=== PATIENT | male | born 1965 | race Caucasian/White ===

== ENCOUNTER 2017-10-17 10:03 | Emergency (ER) | payer BC ==
[~2017-10-17] VITALS: Ht 180.3 cm; Wt 106.8 kg
[2017-10-17] MEDS ORDERED: VENL75CA47 PO (10:17)
[2017-10-17 11:37] LABS: BASO # 0.1 10^3/uL (0.0-0.2); BASO % 0.7 % (0.0-1.0); EOS # 0.3 10^3/uL (0.0-0.50); IMMATURE GRANULOCYTE % 0.4 % (0-0); LYMPH # 3.2 10^3/uL (1.5-4.5); LYMPH % 33.1 % (24.0-44.0); MEAN CORPUSCULAR HEMOGLOBIN 30.6 pg (27.0-33.0); MEAN CORPUSCULAR HGB CONC 33.9 g/dl (32.0-36.5); MEAN CORPUSCULAR VOLUME 90.2 fl (80.0-96.0); MONO # 0.8 10^3/uL (0.0-0.8); MONO % 7.9 % (0.0-5.0); NEUTROPHILS # 5.3 10^3/uL (1.8-7.7); NEUTROPHILS % 54.9 % (36.0-66.0); PLATELET COUNT, AUTOMATED 343 10^3/uL (150-450); RED CELL DISTRIBUTION WIDTH 12.4 % (11.5-14.5); WHITE BLOOD COUNT 9.6 10^3/uL (4.0-10.0)
[2017-10-17 12:13] LABS: OSMOLALITY SERUM 295 MOSM/KG (275-295)
[2017-10-17 12:22] LABS: ALBUMIN 4.5 GM/DL (3.2-5.2); ALBUMIN/GLOBULIN RATIO 1.25 (1.00-1.93); ALKALINE PHOSPHATASE 59 U/L (45-117); ALT/SGPT 57 U/L (12-78); ANION GAP 6 MEQ/L (8-16); AST/SGOT 42 U/L (7-37); BILIRUBIN,DIRECT 0.1 MG/DL (0.0-0.2); BILIRUBIN,TOTAL 0.8 MG/DL (0.2-1.0); BLOOD UREA NITROGEN 14 MG/DL (7-18); CALCIUM LEVEL 9.8 MG/DL (8.5-10.1); CARBON DIOXIDE LEVEL 30 MEQ/L (21-32); CHLORIDE LEVEL 102 MEQ/L (98-107); CREATININE FOR GFR 1.14 MG/DL (0.70-1.30); GLOMERULAR FILTRATION RATE > 60.0 (>56); GLUCOSE, FASTING 108 MG/DL (70-105); POTASSIUM SERUM 4.3 MEQ/L (3.5-5.1); SODIUM LEVEL 138 MEQ/L (136-145); TOTAL PROTEIN 8.1 GM/DL (6.4-8.2)
[2017-10-17 14:48] VITALS: BP 162/82
--- NOTE | 2017-10-17 18:54 | REP ---
CT study of the brain without contrast: History: Altered mental status. CT findings: Digital lateral cadd technician view is unremarkable. Bone window settings demonstrate an intact bony calvarium. No bony destructive lesion is seen. Visualized paranasal sinuses are clear. No intraorbital abnormality is seen. On soft tissue window settings, lateral, third, and fourth ventricles are normal in size and position. Bay-white differentiation pattern is normal above and below the tentorium. There is no evidence of intracranial hemorrhage. No extra-axial fluid collection is seen. No mass, infarction or midline shift is seen. Impression: Unremarkable noncontrast brain CT study. Signed by Waldo Braun MD 10/18/2017 08:05 A
--- NOTE | 2017-10-17 19:36 | ECGEPIP ---
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
== END 2017-10-17 14:48 | disposition home or self-care (01) ==
LOC: M ED 10:03
DX: F98.5 Adult onset fluency disorder (principal); F32.9 Major depressive disorder, single episode, unspecified; F17.200 Nicotine dependence, unspecified, uncomplicated; Z79.899 Other long term (current) drug therapy
CPT/HCPCS: 70450; 80048; 80076; 82140; 83930; 84443; 85025; 93005; 93041; 94760; 99285; G0480

== ENCOUNTER 2017-12-21 11:11 | Inpatient (IN) | payer BC ==
[2017-12-21 12:15] LABS: HEMATOCRIT 45.7 % (42.0-52.0); HEMOGLOBIN 15.7 g/dl (14.0-18.0); MEAN CORPUSCULAR HEMOGLOBIN 31.6 pg (27.0-33.0); MEAN CORPUSCULAR HGB CONC 34.4 g/dl (32.0-36.5); PLATELET COUNT, AUTOMATED 265 10^3/uL (150-450); RED BLOOD COUNT 4.97 10^6/uL (4.30-6.10); RED CELL DISTRIBUTION WIDTH 12.5 % (11.5-14.5); WHITE BLOOD COUNT 10.1 10^3/uL (4.0-10.0)
[2017-12-21] MEDS: OLANZapine ORAL DISINTEGRATING TAB 5MG PO (12:15)
[2017-12-21 12:34] LABS: ALBUMIN/GLOBULIN RATIO 1.25 (1.00-1.93); ALKALINE PHOSPHATASE 51 U/L (45-117); ALT/SGPT 55 U/L (12-78); ANION GAP 8 MEQ/L (8-16); AST/SGOT 33 U/L (7-37); BILIRUBIN,DIRECT 0.2 MG/DL (0.0-0.2); BILIRUBIN,TOTAL 0.8 MG/DL (0.2-1.0); BLOOD UREA NITROGEN 18 MG/DL (7-18); CALCIUM LEVEL 9.4 MG/DL (8.5-10.1); CARBON DIOXIDE LEVEL 28 MEQ/L (21-32); CHLORIDE LEVEL 103 MEQ/L (98-107); ETHYL ALCOHOL (ETHANOL) < 0.003 % (0.000-0.010); GLOMERULAR FILTRATION RATE > 60.0 (>56); GLUCOSE, FASTING 128 MG/DL (70-100); POTASSIUM SERUM 4.3 MEQ/L (3.5-5.1); SALICYLATE LEVEL < 1.7 MG/DL (5.0-30.0); SODIUM LEVEL 139 MEQ/L (136-145); TOTAL PROTEIN 7.2 GM/DL (6.4-8.2)
[2017-12-21 12:37] LABS: ACETAMINOPHEN LEVEL < 2.0 UG/ML (10.0-30.0)
[2017-12-21 12:44] LABS: AMPHETAMINES LEVEL URINE NEGATIVE (NEGATIVE); BARBITURATES URINE NEGATIVE (NEGATIVE); BENZODIAZEPINES URINE NEGATIVE (NEGATIVE); CANNABINOIDS URINE NEGATIVE (NEGATIVE); COCAINE METABOLITE URINE NEGATIVE (NEGATIVE); METHADONE URINE NEGATIVE (NEGATIVE); OPIATES URINE NEGATIVE (NEGATIVE); PHENCYCLIDINE URINE NEGATIVE (NEGATIVE)
[2017-12-21] MEDS ORDERED: ACETAMINOPHEN TAB 650MG DOSE (2X325MG) PO (14:15)
[2017-12-21] MEDS ORDERED: MOM 30ML SUSPENSION UDC PO (14:15)
[2017-12-21] MEDS ORDERED: MAALOX 30 ML SUSP *UDC PO (14:15)
[2017-12-21] MEDS ORDERED: LORazepam 2 MG/ML VIAL (J2060) IM (15:00)
[2017-12-21] MEDS ORDERED: HALOPERIDOL 5 MG/ML VIAL (J1630) IM (15:00)
[2017-12-21] MEDS ORDERED: LORazepam 1 MG TAB PO (15:00)
[2017-12-21] MEDS ORDERED: HALOPERIDOL 5 MG TAB PO (15:00)
[2017-12-21] MEDS ORDERED: QUEtiapine FUMARATE 100 MG TAB PO ×2 (21:00)
[2017-12-24 07:15] LABS: FREE THYROXINE INDEX 2.3 % (1.4-3.8); T UPTAKE 29 % (33-40); THYROXINE (T4) 8.1 UG/DL (4.5-12.0)
[2017-12-24] MEDS: FAMOTIDINE 20 MG TAB PO (09:00)
== END 2017-12-24 13:30 | disposition home or self-care (01) | DRG 754 ==
LOC: M PSY 12-22 21:10 → M ED 11:11 → M ED INP 14:13 → M PSY 16:10
DX: F32.9 Major depressive disorder, single episode, unspecified (principal); F41.9 Anxiety disorder, unspecified; G47.33 Obstructive sleep apnea (adult) (pediatric); K21.9 Gastro-esophageal reflux disease without esophagitis

== ENCOUNTER 2018-05-09 09:50 | Inpatient (IN) | payer BC ==
[2018-05-09] MEDS: BENZTROPINE MESYLATE 2MG/2ML VIAL IM (11:00)
[2018-05-09 12:10] LABS: HEMOGLOBIN 16.7 g/dl (13.5-17.5); MEAN CORPUSCULAR HEMOGLOBIN 31.3 pg (27.0-33.0); MEAN CORPUSCULAR HGB CONC 34.1 g/dl (32.0-36.5); MEAN CORPUSCULAR VOLUME 91.9 fl (80.0-96.0); PLATELET COUNT, AUTOMATED 239 10^3/uL (150-450); RED BLOOD COUNT 5.33 10^6/uL (4.30-6.10); RED CELL DISTRIBUTION WIDTH 12.6 % (11.5-14.5); WHITE BLOOD COUNT 8.6 10^3/uL (4.0-10.0)
[2018-05-09 12:36] LABS: AMPHETAMINES LEVEL URINE NEGATIVE (NEGATIVE); BARBITURATES URINE NEGATIVE (NEGATIVE); BENZODIAZEPINES URINE NEGATIVE (NEGATIVE); CANNABINOIDS URINE NEGATIVE (NEGATIVE); COCAINE METABOLITE URINE NEGATIVE (NEGATIVE); METHADONE URINE NEGATIVE (NEGATIVE); OPIATES URINE NEGATIVE (NEGATIVE); PHENCYCLIDINE URINE NEGATIVE (NEGATIVE)
[2018-05-09 12:47] LABS: ALBUMIN 4.3 GM/DL (3.2-5.2); ALBUMIN/GLOBULIN RATIO 1.39 (1.00-1.93); ALKALINE PHOSPHATASE 52 U/L (45-117); ALT/SGPT 57 U/L (12-78); ANION GAP 8 MEQ/L (8-16); AST/SGOT 24 U/L (7-37); BILIRUBIN,DIRECT 0.3 MG/DL (0.0-0.2); BILIRUBIN,TOTAL 1.3 MG/DL (0.2-1.0); BLOOD UREA NITROGEN 18 MG/DL (7-18); CALCIUM LEVEL 9.7 MG/DL (8.5-10.1); CARBON DIOXIDE LEVEL 27 MEQ/L (21-32); CHLORIDE LEVEL 107 MEQ/L (98-107); CREATININE FOR GFR 1.06 MG/DL (0.70-1.30); ETHYL ALCOHOL (ETHANOL) < 0.003 % (0.000-0.010); GLOMERULAR FILTRATION RATE > 60.0 (>56); GLUCOSE, FASTING 98 MG/DL (70-100); POTASSIUM SERUM 4.1 MEQ/L (3.5-5.1); SALICYLATE LEVEL < 1.7 MG/DL (5.0-30.0); SODIUM LEVEL 142 MEQ/L (136-145); TOTAL PROTEIN 7.4 GM/DL (6.4-8.2)
[2018-05-09 12:48] LABS: ACETAMINOPHEN LEVEL < 2.0 UG/ML (10.0-30.0)
[2018-05-09] MEDS ORDERED: LORazepam 0.5 MG TAB PO (13:45)
[2018-05-09] MEDS ORDERED: ACETAMINOPHEN TAB 650MG DOSE (2X325MG) PO (13:45)
[2018-05-09] MEDS ORDERED: MOM 30ML SUSPENSION UDC PO (13:45)
[2018-05-09] MEDS: MAALOX 30 ML SUSP *UDC PO (20:10)
[2018-05-09] MEDS: traZODone 50 MG TAB PO (21:35)
[2018-05-10] MEDS: QUEtiapine FUMARATE 25 MG TAB PO ×2 (18:53→19:02)
[2018-05-10] MEDS ORDERED: QUEtiapine FUMARATE 12.5 MG HALF-TAB PO (21:00)
[2018-05-11] MEDS: ESCITALOPRAM OXALATE 5MG TABLET (LEXAPRO) PO (12:11)
[2018-05-11] MEDS: MAALOX 30 ML SUSP *UDC PO (20:40)
[2018-05-11] MEDS: QUEtiapine FUMARATE 25 MG TAB PO (21:27)
[2018-05-12] MEDS: traZODone 50 MG TAB PO ×2 (00:52→23:34)
[2018-05-12] MEDS: diphenhydrAMINE 50 MG CAP PO (08:17)
[2018-05-12] MEDS: ESCITALOPRAM OXALATE 5MG TABLET (LEXAPRO) PO ×2 (08:17→15:37)
[2018-05-12] MEDS: QUEtiapine FUMARATE 25 MG TAB PO (20:58)
[2018-05-12] MEDS: MAALOX 30 ML SUSP *UDC PO (20:59)
[2018-05-13] MEDS: HALOPERIDOL 5 MG TAB PO (07:39)
[2018-05-13] MEDS ORDERED: ESCITALOPRAM OXALATE 5MG TABLET (LEXAPRO) PO (09:00)
[2018-05-13] MEDS: ESCITALOPRAM OXALATE 10 MG TAB (LEXAPRO) PO ×2 (09:00→15:02)
[2018-05-14] MEDS ORDERED: ESCITALOPRAM OXALATE 10 MG TAB (LEXAPRO) PO (09:00)
== END 2018-05-13 15:20 | disposition home or self-care (01) | DRG 753 ==
LOC: M ED 09:50 → M ED INP 13:33 → M PSY 14:48
DX: F31.9 Bipolar disorder, unspecified (principal); F41.9 Anxiety disorder, unspecified; K21.9 Gastro-esophageal reflux disease without esophagitis; G47.33 Obstructive sleep apnea (adult) (pediatric)

== ENCOUNTER 2018-06-04 09:50 | Inpatient (IN) | payer BC ==
[2018-06-04 10:46] LABS: HEMATOCRIT 53.7 % (42.0-52.0); MEAN CORPUSCULAR HEMOGLOBIN 31.3 pg (27.0-33.0); MEAN CORPUSCULAR HGB CONC 33.5 g/dl (32.0-36.5); MEAN CORPUSCULAR VOLUME 93.4 fl (80.0-96.0); PLATELET COUNT, AUTOMATED 264 10^3/uL (150-450); RED BLOOD COUNT 5.75 10^6/uL (4.30-6.10); RED CELL DISTRIBUTION WIDTH 12.6 % (11.5-14.5); WHITE BLOOD COUNT 9.8 10^3/uL (4.0-10.0)
[2018-06-04 11:17] LABS: ALBUMIN 4.3 GM/DL (3.2-5.2); ALBUMIN/GLOBULIN RATIO 1.19 (1.00-1.93); ALKALINE PHOSPHATASE 56 U/L (45-117); ALT/SGPT 50 U/L (12-78); AMPHETAMINES LEVEL URINE NEGATIVE (NEGATIVE); ANION GAP 9 MEQ/L (8-16); AST/SGOT 22 U/L (7-37); BARBITURATES URINE NEGATIVE (NEGATIVE); BENZODIAZEPINES URINE NEGATIVE (NEGATIVE); BILIRUBIN,DIRECT 0.3 MG/DL (0.0-0.2); BILIRUBIN,TOTAL 1.9 MG/DL (0.2-1.0); BLOOD UREA NITROGEN 20 MG/DL (7-18); CALCIUM LEVEL 9.5 MG/DL (8.5-10.1); CANNABINOIDS URINE NEGATIVE (NEGATIVE); CARBON DIOXIDE LEVEL 28 MEQ/L (21-32); CHLORIDE LEVEL 106 MEQ/L (98-107); COCAINE METABOLITE URINE NEGATIVE (NEGATIVE); CREATININE FOR GFR 1.25 MG/DL (0.70-1.30); ETHYL ALCOHOL (ETHANOL) 0.003 % (0.000-0.010); GLOMERULAR FILTRATION RATE > 60.0 (>56); GLUCOSE, FASTING 120 MG/DL (70-100); METHADONE URINE NEGATIVE (NEGATIVE); OPIATES URINE NEGATIVE (NEGATIVE); PHENCYCLIDINE URINE NEGATIVE (NEGATIVE); POTASSIUM SERUM 4.1 MEQ/L (3.5-5.1); SALICYLATE LEVEL < 1.7 MG/DL (5.0-30.0); SODIUM LEVEL 143 MEQ/L (136-145); TOTAL PROTEIN 7.9 GM/DL (6.4-8.2)
[2018-06-04 11:22] LABS: ACETAMINOPHEN LEVEL < 2.0 UG/ML (10.0-30.0)
[2018-06-04] MEDS ORDERED: ACETAMINOPHEN TAB 650MG DOSE (2X325MG) PO (15:15)
[2018-06-04] MEDS: hydrOXYzine 25 MG TAB PO (15:48)
[2018-06-04] MEDS: MAALOX 30 ML SUSP *UDC PO (20:52)
[2018-06-04] MEDS: traZODone 50 MG TAB PO ×2 (20:52→23:30)
[2018-06-04] MEDS: QUEtiapine FUMARATE 25 MG TAB PO (20:52)
[2018-06-04] MEDS: ESCITALOPRAM OXALATE 10 MG TAB (LEXAPRO) PO (20:52)
[2018-06-05] MEDS: hydrOXYzine 25 MG TAB PO ×3 (02:10→20:35)
[2018-06-05 07:09] LABS: HEMATOCRIT 48.1 % (42.0-52.0); HEMOGLOBIN 16.2 g/dl (13.5-17.5); MEAN CORPUSCULAR HEMOGLOBIN 31.1 pg (27.0-33.0); MEAN CORPUSCULAR HGB CONC 33.7 g/dl (32.0-36.5); MEAN CORPUSCULAR VOLUME 92.3 fl (80.0-96.0); PLATELET COUNT, AUTOMATED 229 10^3/uL (150-450); RED BLOOD COUNT 5.21 10^6/uL (4.30-6.10); RED CELL DISTRIBUTION WIDTH 12.6 % (11.5-14.5); WHITE BLOOD COUNT 7.6 10^3/uL (4.0-10.0)
[2018-06-05 07:25] LABS: ALBUMIN 3.9 GM/DL (3.2-5.2); ALBUMIN/GLOBULIN RATIO 1.15 (1.00-1.93); ALKALINE PHOSPHATASE 52 U/L (45-117); ALT/SGPT 45 U/L (12-78); ANION GAP 7 MEQ/L (8-16); AST/SGOT 20 U/L (7-37); BILIRUBIN,TOTAL 1.4 MG/DL (0.2-1.0); BLOOD UREA NITROGEN 20 MG/DL (7-18); CALCIUM LEVEL 9.1 MG/DL (8.5-10.1); CARBON DIOXIDE LEVEL 28 MEQ/L (21-32); CHLORIDE LEVEL 108 MEQ/L (98-107); GLOMERULAR FILTRATION RATE > 60.0 (>56); GLUCOSE, FASTING 106 MG/DL (70-100); POTASSIUM SERUM 4.1 MEQ/L (3.5-5.1); SODIUM LEVEL 143 MEQ/L (136-145); TOTAL PROTEIN 7.3 GM/DL (6.4-8.2)
[2018-06-05] MEDS ORDERED: OLANZapine INTRAMUSCULAR 10 MG VIAL (S0166) IM (11:04)
[2018-06-05] MEDS ORDERED: diphenhydrAMINE INJ 50MG/ML VIAL (J1200) IM (11:04)
[2018-06-05] MEDS ORDERED: LORazepam 2 MG/ML VIAL (J2060) IM (11:04)
[2018-06-05] MEDS: LITHIUM CARBONATE 300 MG **CR** TAB PO ×2 (12:04→20:34)
[2018-06-05 12:39] LABS: FREE THYROXINE INDEX 3.4 % (1.4-3.8); T UPTAKE 37 % (33-40); THYROXINE (T4) 9.1 UG/DL (4.5-12.0)
[2018-06-05] MEDS: MAALOX 30 ML SUSP *UDC PO (16:26)
[2018-06-05] MEDS: traZODone 50 MG TAB PO (20:34)
[2018-06-05] MEDS: ESCITALOPRAM OXALATE 10 MG TAB (LEXAPRO) PO (20:34)
[2018-06-05] MEDS: MOM 30ML SUSPENSION UDC PO (22:38)
[2018-06-06] MEDS: LITHIUM CARBONATE 300 MG **CR** TAB PO (08:28)
[2018-06-06] MEDS ORDERED: ESCITALOPRAM OXALATE 10 MG TAB (LEXAPRO) PO (09:00)
[2018-06-06] MEDS: MAALOX 30 ML SUSP *UDC PO (13:05)
[2018-06-06] MEDS: traZODone 50 MG TAB PO (20:51)
[2018-06-06] MEDS: ESCITALOPRAM OXALATE 10 MG TAB (LEXAPRO) PO (20:51)
[2018-06-06] MEDS: LITHIUM CARBONATE 450 MG **CR** TAB PO (20:52)
[2018-06-06] MEDS: hydrOXYzine 25 MG TAB PO (20:52)
[2018-06-06] MEDS: MOM 30ML SUSPENSION UDC PO (20:53)
[2018-06-07] MEDS: LITHIUM CARBONATE 450 MG **CR** TAB PO ×2 (09:31→21:53)
[2018-06-07] MEDS: MAALOX 30 ML SUSP *UDC PO ×3 (10:29→21:52)
[2018-06-07] MEDS ORDERED: PILL CRUSHER/CUTTER 1 EACH XX (11:00)
[2018-06-07 12:12] LABS: ANION GAP 6 MEQ/L (8-16); BLOOD UREA NITROGEN 12 MG/DL (7-18); CALCIUM LEVEL 9.5 MG/DL (8.5-10.1); CARBON DIOXIDE LEVEL 29 MEQ/L (21-32); CHLORIDE LEVEL 108 MEQ/L (98-107); CREATININE FOR GFR 1.06 MG/DL (0.70-1.30); GLOMERULAR FILTRATION RATE > 60.0 (>56); GLUCOSE, FASTING 100 MG/DL (70-100); POTASSIUM SERUM 4.4 MEQ/L (3.5-5.1); SODIUM LEVEL 143 MEQ/L (136-145)
[2018-06-07] MEDS: METHYLPHENIDATE 5 MG TAB PO (13:15)
[2018-06-07] MEDS: hydrOXYzine 25 MG TAB PO (21:54)
[2018-06-07] MEDS: ESCITALOPRAM OXALATE 10 MG TAB (LEXAPRO) PO (21:54)
[2018-06-07] MEDS: traZODone 50 MG TAB PO (21:54)
[2018-06-08 07:21] LABS: LITHIUM LEVEL 0.57 MEQ/L (0.60-1.20)
[2018-06-08] MEDS: LITHIUM CARBONATE 450 MG **CR** TAB PO ×2 (08:40→21:55)
[2018-06-08] MEDS: METHYLPHENIDATE 5 MG TAB PO ×2 (08:40→14:10)
[2018-06-08] MEDS: MAALOX 30 ML SUSP *UDC PO ×2 (14:59→21:57)
[2018-06-08] MEDS: ESCITALOPRAM OXALATE 10 MG TAB (LEXAPRO) PO (21:55)
[2018-06-08] MEDS: hydrOXYzine 25 MG TAB PO (21:55)
[2018-06-08] MEDS: traZODone 50 MG TAB PO (21:55)
[2018-06-09] MEDS: LITHIUM CARBONATE 450 MG **CR** TAB PO ×2 (08:19→20:51)
[2018-06-09] MEDS: METHYLPHENIDATE 5 MG TAB PO ×2 (08:19→13:38)
[2018-06-09] MEDS: MAALOX 30 ML SUSP *UDC PO (18:59)
[2018-06-09] MEDS: hydrOXYzine 25 MG TAB PO (20:51)
[2018-06-09] MEDS: ESCITALOPRAM OXALATE 10 MG TAB (LEXAPRO) PO (20:51)
[2018-06-09] MEDS: traZODone 50 MG TAB PO (20:51)
[2018-06-10] MEDS: METHYLPHENIDATE 5 MG TAB PO ×3 (07:54→13:21)
[2018-06-10] MEDS: LITHIUM CARBONATE 450 MG **CR** TAB PO ×2 (08:00→21:46)
[2018-06-10] MEDS: ESCITALOPRAM OXALATE 10 MG TAB (LEXAPRO) PO (21:45)
[2018-06-10] MEDS: traZODone 50 MG TAB PO (21:45)
[2018-06-10] MEDS: hydrOXYzine 25 MG TAB PO (21:46)
[2018-06-10] MEDS: MAALOX 30 ML SUSP *UDC PO (21:48)
[2018-06-11] MEDS: METHYLPHENIDATE 5 MG TAB PO ×2 (08:22→13:14)
[2018-06-11] MEDS: LITHIUM CARBONATE 300 MG **CR** TAB PO (08:22)
[2018-06-11] MEDS: hydrOXYzine 25 MG TAB PO ×2 (08:22→20:49)
[2018-06-11] MEDS: MAALOX 30 ML SUSP *UDC PO (16:35)
[2018-06-11] MEDS: LITHIUM CARBONATE 450 MG **CR** TAB PO (20:49)
[2018-06-11] MEDS: traZODone 50 MG TAB PO (20:49)
[2018-06-11] MEDS: ESCITALOPRAM OXALATE 10 MG TAB (LEXAPRO) PO (20:49)
[2018-06-12] MEDS: METHYLPHENIDATE 5 MG TAB PO ×2 (08:16→13:23)
[2018-06-12] MEDS: LITHIUM CARBONATE 300 MG **CR** TAB PO (08:16)
[2018-06-12] MEDS: buPROPion **XL** TABLET 150MG (WELLBUTRIN XL) PO (11:19)
[2018-06-12] MEDS: ESCITALOPRAM OXALATE 10 MG TAB (LEXAPRO) PO (22:09)
[2018-06-12] MEDS: hydrOXYzine 25 MG TAB PO (22:09)
[2018-06-12] MEDS: LITHIUM CARBONATE 450 MG **CR** TAB PO (22:09)
[2018-06-12] MEDS: traZODone 50 MG TAB PO (22:09)
[2018-06-13 08:34] LABS: LITHIUM LEVEL 0.86 MEQ/L (0.60-1.20)
[2018-06-13] MEDS: LITHIUM CARBONATE 300 MG **CR** TAB PO (09:14)
[2018-06-13] MEDS: METHYLPHENIDATE 5 MG TAB PO ×2 (09:14→14:04)
[2018-06-13] MEDS: buPROPion **XL** TABLET 150MG (WELLBUTRIN XL) PO (09:14)
[2018-06-13] MEDS: MAALOX 30 ML SUSP *UDC PO (20:06)
[2018-06-13] MEDS: ESCITALOPRAM OXALATE 10 MG TAB (LEXAPRO) PO (21:35)
[2018-06-13] MEDS: LITHIUM CARBONATE 450 MG **CR** TAB PO (21:35)
[2018-06-13] MEDS: traZODone 50 MG TAB PO (21:35)
[2018-06-13] MEDS: hydrOXYzine 25 MG TAB PO (21:35)
[2018-06-14] MEDS: METHYLPHENIDATE 5 MG TAB PO ×2 (08:36→13:57)
[2018-06-14] MEDS: LITHIUM CARBONATE 300 MG **CR** TAB PO (08:36)
[2018-06-14] MEDS: buPROPion **XL** TABLET 150MG (WELLBUTRIN XL) PO (08:36)
[2018-06-14] MEDS: hydrOXYzine 25 MG TAB PO (21:32)
[2018-06-14] MEDS: traZODone 50 MG TAB PO (21:32)
[2018-06-14] MEDS: ESCITALOPRAM OXALATE 10 MG TAB (LEXAPRO) PO (21:32)
[2018-06-14] MEDS: LITHIUM CARBONATE 450 MG **CR** TAB PO (21:32)
[2018-06-15] MEDS: METHYLPHENIDATE 5 MG TAB PO ×2 (08:55→13:07)
[2018-06-15] MEDS: LITHIUM CARBONATE 300 MG **CR** TAB PO (08:55)
[2018-06-15] MEDS: buPROPion **XL** TABLET 150MG (WELLBUTRIN XL) PO (08:55)
[2018-06-15] MEDS: ESCITALOPRAM OXALATE 10 MG TAB (LEXAPRO) PO (20:54)
[2018-06-15] MEDS: LITHIUM CARBONATE 450 MG **CR** TAB PO (20:55)
[2018-06-16] MEDS: METHYLPHENIDATE 5 MG TAB PO ×2 (08:56→14:05)
[2018-06-16] MEDS: buPROPion **XL** TABLET 150MG (WELLBUTRIN XL) PO (08:56)
[2018-06-16] MEDS: LITHIUM CARBONATE 300 MG **CR** TAB PO (08:56)
[2018-06-16] MEDS: traZODone 25MG PER 1/2 TABLET PO (22:01)
[2018-06-16] MEDS: LITHIUM CARBONATE 450 MG **CR** TAB PO (22:02)
[2018-06-16] MEDS: ESCITALOPRAM OXALATE 10 MG TAB (LEXAPRO) PO (22:04)
[2018-06-17] MEDS: METHYLPHENIDATE 5 MG TAB PO ×2 (09:24→14:25)
[2018-06-17] MEDS: LITHIUM CARBONATE 300 MG **CR** TAB PO (09:24)
[2018-06-17] MEDS: buPROPion **XL** TABLET 150MG (WELLBUTRIN XL) PO (09:24)
[2018-06-17] MEDS: hydrOXYzine 25 MG TAB PO (20:26)
[2018-06-17] MEDS: traZODone 50 MG TAB PO (20:27)
[2018-06-17] MEDS: LITHIUM CARBONATE 450 MG **CR** TAB PO (20:27)
[2018-06-17] MEDS: ESCITALOPRAM OXALATE 10 MG TAB (LEXAPRO) PO (20:27)
[2018-06-18] MEDS: LITHIUM CARBONATE 300 MG **CR** TAB PO (08:45)
[2018-06-18] MEDS: METHYLPHENIDATE 5 MG TAB PO ×2 (08:45→13:36)
[2018-06-18] MEDS: buPROPion **XL** TABLET 150MG (WELLBUTRIN XL) PO (08:45)
[2018-06-18] MEDS: hydrOXYzine 25 MG TAB PO (21:54)
[2018-06-18] MEDS: traZODone 50 MG TAB PO (21:54)
[2018-06-18] MEDS: LITHIUM CARBONATE 450 MG **CR** TAB PO (21:54)
[2018-06-18] MEDS: ESCITALOPRAM OXALATE 10 MG TAB (LEXAPRO) PO (21:54)
[2018-06-19] MEDS: METHYLPHENIDATE 5 MG TAB PO ×2 (08:38→14:32)
[2018-06-19] MEDS: buPROPion **XL** TABLET 150MG (WELLBUTRIN XL) PO (08:38)
[2018-06-19] MEDS: LITHIUM CARBONATE 300 MG **CR** TAB PO ×2 (08:38→20:53)
[2018-06-19] MEDS: traZODone 50 MG TAB PO (20:53)
[2018-06-19] MEDS: ESCITALOPRAM OXALATE 10 MG TAB (LEXAPRO) PO (20:53)
[2018-06-19] MEDS: hydrOXYzine 25 MG TAB PO (20:53)
[2018-06-20] MEDS ORDERED: buPROPion **XL** TABLET 150MG (WELLBUTRIN XL) PO (09:00)
[2018-06-20] MEDS: buPROPion **XL** TABLET 150MG (WELLBUTRIN XL) PO (09:12)
[2018-06-20] MEDS: METHYLPHENIDATE 5 MG TAB PO ×2 (09:12→13:36)
[2018-06-20] MEDS: LITHIUM CARBONATE 300 MG **CR** TAB PO (09:13)
[2018-06-20] MEDS: hydrOXYzine 25 MG TAB PO (20:45)
[2018-06-20] MEDS: LITHIUM CARBONATE 450 MG **CR** TAB PO (20:46)
[2018-06-20] MEDS: traZODone 50 MG TAB PO (20:46)
[2018-06-20] MEDS: ESCITALOPRAM OXALATE 10 MG TAB (LEXAPRO) PO (20:46)
[2018-06-20] MEDS: MAALOX 30 ML SUSP *UDC PO (21:14)
[2018-06-21] MEDS: LITHIUM CARBONATE 300 MG **CR** TAB PO (08:51)
[2018-06-21] MEDS: METHYLPHENIDATE 5 MG TAB PO ×2 (08:51→13:32)
[2018-06-21] MEDS: buPROPion **XL** TABLET 150MG (WELLBUTRIN XL) PO (08:51)
[2018-06-21] MEDS: hydrOXYzine 25 MG TAB PO (20:36)
[2018-06-21] MEDS: LITHIUM CARBONATE 450 MG **CR** TAB PO (20:36)
[2018-06-21] MEDS: traZODone 50 MG TAB PO (20:36)
[2018-06-21] MEDS: ESCITALOPRAM OXALATE 10 MG TAB (LEXAPRO) PO (20:37)
[2018-06-22] MEDS: METHYLPHENIDATE 5 MG TAB PO ×2 (09:05→13:24)
[2018-06-22] MEDS: LITHIUM CARBONATE 300 MG **CR** TAB PO (09:05)
[2018-06-22] MEDS: buPROPion **XL** TABLET 150MG (WELLBUTRIN XL) PO (09:05)
[2018-06-22] MEDS: hydrOXYzine 25 MG TAB PO (21:19)
[2018-06-22] MEDS: ESCITALOPRAM OXALATE 10 MG TAB (LEXAPRO) PO (21:19)
[2018-06-22] MEDS: traZODone 50 MG TAB PO (21:19)
[2018-06-22] MEDS: LITHIUM CARBONATE 450 MG **CR** TAB PO (21:20)
[2018-06-23] MEDS: buPROPion **XL** TABLET 150MG (WELLBUTRIN XL) PO (09:17)
[2018-06-23] MEDS: LITHIUM CARBONATE 300 MG **CR** TAB PO (09:17)
[2018-06-23] MEDS: METHYLPHENIDATE 5 MG TAB PO ×2 (09:17→14:32)
[2018-06-23] MEDS: LITHIUM CARBONATE 450 MG **CR** TAB PO (21:05)
[2018-06-23] MEDS: ESCITALOPRAM OXALATE 10 MG TAB (LEXAPRO) PO (21:06)
[2018-06-24] MEDS: buPROPion **XL** TABLET 150MG (WELLBUTRIN XL) PO (08:02)
[2018-06-24] MEDS: LITHIUM CARBONATE 300 MG **CR** TAB PO ×2 (08:02→21:06)
[2018-06-24] MEDS: METHYLPHENIDATE 5 MG TAB PO ×2 (08:02→13:01)
[2018-06-24] MEDS: ESCITALOPRAM OXALATE 10 MG TAB (LEXAPRO) PO (21:06)
[2018-06-25] MEDS: hydrOXYzine 25 MG TAB PO (01:55)
[2018-06-25] MEDS: buPROPion **XL** TABLET 150MG (WELLBUTRIN XL) PO (08:30)
[2018-06-25] MEDS: METHYLPHENIDATE 5 MG TAB PO ×2 (08:30→12:29)
[2018-06-25] MEDS: LITHIUM CARBONATE 300 MG **CR** TAB PO (08:30)
== END 2018-06-25 12:40 | DRG 753 ==
LOC: M PSY 06-08 12:59 → M ED 09:50 → M PSY 14:10
DX: F31.9 Bipolar disorder, unspecified (principal); R45.851 Suicidal ideations; Z79.899 Other long term (current) drug therapy; G47.33 Obstructive sleep apnea (adult) (pediatric); K21.9 Gastro-esophageal reflux disease without esophagitis

== ENCOUNTER → 2018-11-13 | Outpatient (CLI) | payer BC ==
[~2018-11-13] MED LIST: ARIP1TAB PO; ARIP5TA PO; FAMO20TA PO; LEXA1TAB2; LEXA1TAB2 PO; LEXA5TAB13 PO; LORA0.5T11 PO; OLAN5ZYD PO; QUET1TAB7 PO; QUET1TAB8 PO; RISP1TAB42 PO; SERO1TAB3; SERO1TAB3 PO; TRAZO50TA PO; VENL75CA47 PO
--- NOTE | 2018-11-14 02:18 | REP ---
Clinical: Testicular mass. Technique: Real time [place] scale and color Doppler evaluation using linear high frequency transducer. Findings: The bilateral testicles are normal in contour, size, echogenicity, and vascularity without evidence for intratesticular mass lesion, infectious/inflammatory process, or torsion. Small/moderate bilateral hydroceles are identified and essentially nonspecific. Right epididymal head cyst measures 2.8 mm maximal diameter while multiple left epididymal head cysts are identified measuring up to 5.8 and 5.7 mm maximal diameter. No varicoceles noted. Right testicle measures 4.2 x 2.6 x 3.7 cm. Left testicle measures 4.5 x 2.7 x 3.0 cm. Impression: 1. Few bilateral epididymal head cysts (left greater than right). 2. Small to moderate bilateral hydroceles are nonspecific. 3. Normal appearance the bilateral testicles. No obvious mass lesion. Electronically Signed by Clifton Castro MD 11/14/2018 02:10 A
== END ==
LOC: M RAD 13:54
PROVIDERS: ATTEND Family Medicine
DX: N50.3 Cyst of epididymis (principal); N43.3 Hydrocele, unspecified

== ENCOUNTER 2022-08-13 14:41 | Emergency (ER) | payer BC, OTHER ==
[~2022-08-13] VITALS: Ht 180.3 cm; Wt 112.7 kg
[~2022-08-13 14:41] MED LIST changes: +ARIP10TA32 PO; -ARIP1TAB PO; +ARIP1TAB6 PO; -ARIP5TA PO; -LORA0.5T11 PO; +LORA0.5T5 PO; +QUET100T2 PO; +QUET1TAB17 PO; -QUET1TAB7 PO; -QUET1TAB8 PO; +TRAZ1TAB10 PO; -TRAZO50TA PO
[2022-08-13] MEDS ORDERED: BUPR300T92 PO (14:53)
[2022-08-13] MEDS ORDERED: METF500T13 PO (14:53)
[2022-08-13 18:43] LABS: BASO # 0.1 10^3/uL (0.0-0.2); BASO % 0.8 % (0.0-1.0); EOS # 0.4 10^3/uL (0.0-0.5); EOS % 3.7 % (0.0-3.0); HEMATOCRIT 52.3 % (42.0-52.0); HEMOGLOBIN 17.5 g/dl (13.5-17.5); LYMPH # 2.6 10^3/uL (1.5-5.0); LYMPH % 24.6 % (24.0-44.0); MEAN CORPUSCULAR HEMOGLOBIN 31.1 pg (27.0-33.0); MEAN CORPUSCULAR HGB CONC 33.5 g/dl (32.0-36.5); MEAN CORPUSCULAR VOLUME 92.9 fl (80.0-96.0); MONO # 0.9 10^3/uL (0.0-0.8); NEUTROPHILS # 6.4 10^3/uL (1.5-8.5); NEUTROPHILS % 61.4 % (36.0-66.0); PLATELET COUNT, AUTOMATED 229 10^3/uL (150-450); RED BLOOD COUNT 5.63 10^6/uL (4.30-6.10); WHITE BLOOD COUNT 10.4 10^3/uL (4.0-10.0)
[2022-08-13 18:58] LABS: INR 0.96
[2022-08-13 18:59] LABS: PARTIAL THROMBOPLASTIN TIME 34.3 SECONDS (24.8-34.2)
[2022-08-13] MEDS ORDERED: ISOVUE-370 76% 100ML VIAL As Ordered ONE (18:59)
[2022-08-13 19:18] LABS: FREE T4 0.91 NG/DL (0.76-1.46); MAGNESIUM LEVEL 2.2 MG/DL (1.8-2.4); THYROID STIMULATING HORMONE 4.21 uIU/ML (0.358-3.740)
[2022-08-13] MEDS ORDERED: LISI10TA22 PO (20:33)
[2022-08-13 20:45] VITALS: BP 167/107
[2022-08-13 20:48] VITALS: BP 167/107
== END 2022-08-13 20:55 | disposition home or self-care (01) ==
LOC: M ED 14:41
DX: R51.9 Headache, unspecified (principal); I10 Essential (primary) hypertension; I25.2 Old myocardial infarction; Z79.811 Long term (current) use of aromatase inhibitors; Z79.899 Other long term (current) drug therapy
CPT/HCPCS: 36415; 70450; 70496; 70498; 80047; 83735; 84439; 84443; 85025; 85610; 85730; 93005; 99284; Q9967

== ENCOUNTER 2023-10-31 06:50 | Day surgery (SDC) | payer OTHER ==
[~2023-10-31] VITALS: Ht 180.3 cm; Wt 108.5 kg
[~2023-10-31 06:50] MED LIST changes: +BUPR300T92 PO; +LISI10TA22 PO; +METF500T13 PO; +NS 1,000 ML IV ONE
[2023-10-31] MEDS ORDERED: propofoL 200 MG/20 ML VIAL As Ordered ONE ×2 (07:50→08:01)
[2023-10-31 08:12] VITALS: TEMP 97.9
[2023-10-31 08:35] VITALS: BP 104/61; O2SAT 94
== END 2023-10-31 08:40 | disposition home or self-care (01) ==
LOC: M OPP 06:50
PROVIDERS: ATTEND Surgery
DX: K64.0 First degree hemorrhoids (principal); R19.5 Other fecal abnormalities; G47.30 Sleep apnea, unspecified; Z99.89 Dependence on other enabling machines and devices; E11.9 Type 2 diabetes mellitus without complications; Z79.84 Long term (current) use of oral hypoglycemic drugs; Z79.899 Other long term (current) drug therapy

== ENCOUNTER 2024-09-19 06:01 | Day surgery (SDC) | payer OTHER ==
[~2024-09-19] VITALS: Ht 170.2 cm; Wt 105.6 kg
[~2024-09-19 06:01] MED LIST changes: -ARIP10TA32 PO; +ARIP10TA63 PO; +BUPR-597 PO; -BUPR300T92 PO; +FAMO10TA50 PO; -NS 1,000 ML IV ONE
[2024-09-19] MEDS ORDERED: ACETAMINOPHEN 1000MG/100ML IV BAG As Ordered ONE (06:48)
[2024-09-19] MEDS ORDERED: LIDOCAINE 2% 100MG/5ML SDV (FOR ANES.) As Ordered ONE (06:56)
[2024-09-19] MEDS ORDERED: SUGAMMADEX SODIUM 500 MG/5 ML VIAL (BRIDION) As Ordered ONE (06:56)
[2024-09-19] MEDS ORDERED: KETOROLAC 60MG 2ML VIAL As Ordered ONE (06:56)
[2024-09-19] MEDS ORDERED: propofoL 200 MG/20 ML VIAL As Ordered ONE (06:56)
[2024-09-19] MEDS ORDERED: ROCURONIUM BROMIDE 50MG/5ML VIAL As Ordered ONE (06:56)
[2024-09-19] MEDS ORDERED: ONDANSETRON 4MG 2ML VIAL As Ordered ONE (06:56)
[2024-09-19] MEDS ORDERED: MIDAZOLAM INJ 2MG/2ML VIAL As Ordered ONE (07:02)
[2024-09-19] MEDS ORDERED: fentaNYL 100 MCG/2 ML INJECTION As Ordered ONE (07:02)
[2024-09-19] MEDS ORDERED: HYDROmorphone HCL 2MG/ML 1ML VIAL As Ordered ONE (07:56)
[2024-09-19] MEDS ORDERED: fentaNYL 100 MCG/2 ML INJECTION IV PRN (08:30)
[2024-09-19] MEDS ORDERED: ONDANSETRON 4MG 2ML VIAL IV PRN (08:30)
[2024-09-19] MEDS ORDERED: oxyCODONE 5MG TAB PO PRN (08:35)
[2024-09-19] MEDS ORDERED: HYDROMORPHONE HCL 0.5 MG/ 0.5 ML SYRINGE IV PRN (08:35)
[2024-09-19] MEDS ORDERED: NORCO, ANEXSIA 5/325MG TABLET (HYDROcodone/ACETAMINOPHEN) PO PRN (09:40)
[2024-09-19 10:54] VITALS: BP 120/72; TEMP 97.3; O2SAT 94
== END 2024-09-19 11:06 | disposition home or self-care (01) ==
LOC: M SDC 06:01
PROVIDERS: ATTEND Surgery
DX: K80.20 Calculus of gallbladder without cholecystitis without obstruction (principal); I10 Essential (primary) hypertension; E11.9 Type 2 diabetes mellitus without complications; K21.9 Gastro-esophageal reflux disease without esophagitis; F41.9 Anxiety disorder, unspecified; F32.A Depression, unspecified; G43.909 Migraine, unspecified, not intractable, without status migrainosus; G47.33 Obstructive sleep apnea (adult) (pediatric); Z79.84 Long term (current) use of oral hypoglycemic drugs; Z79.899 Other long term (current) drug therapy
CPT/HCPCS: 47562; 88304; J0131; J0665; J1100; J1171; J1885; J2250; J2405; J3010; S2900

== ENCOUNTER 2024-12-24 09:47 | Day surgery (SDC) | payer OTHER ==
[~2024-12-24] VITALS: Ht 180.3 cm; Wt 108.0 kg
[~2024-12-24 09:47] MED LIST changes: +VITA100093 PO
[2024-12-24] MEDS ORDERED: propofoL 200 MG/20 ML VIAL As Ordered ONE (12:05)
[2024-12-24] MEDS ORDERED: fentaNYL 100 MCG/2 ML INJECTION As Ordered ONE (12:05)
[2024-12-24] MEDS ORDERED: LIDOCAINE 2% 100MG/5ML SDV (FOR ANES.) As Ordered ONE (12:05)
[2024-12-24 12:17] VITALS: TEMP 97
[2024-12-24 12:52] VITALS: BP 135/83; O2SAT 94
== END 2024-12-24 13:26 | disposition home or self-care (01) ==
LOC: M OPP 09:47
PROVIDERS: ATTEND Surgery
DX: K57.30 Diverticulosis of large intestine without perforation or abscess without bleeding (principal); K64.0 First degree hemorrhoids; R93.3 Abnormal findings on diagnostic imaging of other parts of digestive tract; K44.9 Diaphragmatic hernia without obstruction or gangrene; K29.70 Gastritis, unspecified, without bleeding; G47.30 Sleep apnea, unspecified; Z79.84 Long term (current) use of oral hypoglycemic drugs; Z79.899 Other long term (current) drug therapy
CPT/HCPCS: 43235; 45378; J3010

== ENCOUNTER 2025-06-25 16:37 | Emergency (ER) | payer OTHER ==
[~2025-06-25] VITALS: Ht 180.3 cm; Wt 108.9 kg
[~2025-06-25 16:37] MED LIST changes: -BUPR-597 PO; +BUPR-766 PO
[2025-06-25 16:41] VITALS: TEMP 98.2
[2025-06-25 17:37] LABS: BASO # 0.1 10^3/uL (0.0-0.2); BASO % 1.0 % (0.0-1.0); EOS # 0.7 10^3/uL (0.0-0.5); EOS % 7.6 % (0.0-3.0); LYMPH # 2.8 10^3/uL (1.5-5.0); LYMPH % 31.1 % (24.0-44.0); MONO # 0.5 10^3/uL (0.0-0.8); MONO % 5.8 % (2.0-8.0); NEUTROPHILS # 4.9 10^3/uL (1.5-8.5); NEUTROPHILS % 54.1 % (36.0-66.0); PLATELET COUNT, AUTOMATED 241 10^3/uL (150-450)
[2025-06-25 17:48] LABS: KETONE, URINE AUTO RFX NEGATIVE (NEGATIVE); LEUKOCYTE ESTERASE UR AUTO RFX NEGATIVE (NEGATIVE); NITRITE, URINE AUTO RFX NEGATIVE (NEGATIVE); RBC, URINE AUTO RFX 0 /HPF (0-3); SQUAM EPITHELIAL CELL UR AURFX 0 /HPF (0-6); WBC, URINE AUTO RFX 0 /HPF (0-3)
[2025-06-25 18:00] VITALS: BP 150/93; O2SAT 97
[2025-06-25 18:25] LABS: ALT/SGPT 53.0 U/L (7.0-40); AST/SGOT 40.0 U/L (<34); CALCIUM LEVEL 9.6 MG/DL (8.3-10.6); CARBON DIOXIDE LEVEL 27.0 MMOL/L (20-31); CHLORIDE LEVEL 102.0 MMOL/L (98-107); CREATININE FOR GFR 1.03 MG/DL (0.70-1.30); GLOMERULAR FILTRATION RATE 82.1 (>49); POTASSIUM SERUM 3.9 MMOL/L (3.5-5.1); SODIUM LEVEL 142.0 MMOL/L (136-145)
[2025-06-25] MEDS: KETOROLAC 60 MG/2 ML VIAL IM ONE (20:21)
[2025-06-25] MEDS: LIDOCAINE 5% PATCH TD ONE (20:21)
[2025-06-25] MEDS ORDERED: VALI2TAB PO (21:33)
[2025-06-25] MEDS: diazePAM 2 MG TAB PO ONE (21:39)
== END 2025-06-25 21:42 | disposition home or self-care (01) ==
LOC: M ED 16:37
DX: S29.012A Strain of muscle and tendon of back wall of thorax, initial encounter (principal); M54.50 Low back pain, unspecified; F32.A Depression, unspecified; F41.9 Anxiety disorder, unspecified; I10 Essential (primary) hypertension; E11.9 Type 2 diabetes mellitus without complications; Z79.899 Other long term (current) drug therapy; Z79.4 Long term (current) use of insulin; X58.XXXA Exposure to other specified factors, initial encounter; Y92.009 Unspecified place in unspecified non-institutional (private) residence as the place of occurrence of the external cause; Y93.89 Activity, other specified; Y99.9 Unspecified external cause status
CPT/HCPCS: 71250; 80048; 80076; 81001; 83690; 85025; 96372; 99284; J1885

== ENCOUNTER → 2025-10-11 | Outpatient (CLI) | payer OTHER ==
[~2025-10-11] MED LIST changes: +VALI2TAB PO
[2025-10-11 09:53] LABS: BASO # 0.1 10^3/uL (0.0-0.2); BASO % 0.9 % (0.0-1.0); EOS # 0.8 10^3/uL (0.0-0.5); EOS % 7.7 % (0.0-3.0); LYMPH # 2.5 10^3/uL (1.5-5.0); LYMPH % 25.0 % (24.0-44.0); MONO # 0.7 10^3/uL (0.0-0.8); MONO % 7.3 % (2.0-8.0); NEUTROPHILS # 5.9 10^3/uL (1.5-8.5); NEUTROPHILS % 58.8 % (36.0-66.0); PLATELET COUNT, AUTOMATED 242 10^3/uL (150-450)
[2025-10-11 10:13] LABS: ESTIMATED AVERAGE GLUCOSE 128.0 MG/DL (60-110)
[2025-10-11 10:29] LABS: ALT/SGPT 64.0 U/L (7.0-40); AST/SGOT 44.0 U/L (<34); CALCIUM LEVEL 9.2 MG/DL (8.3-10.6); CARBON DIOXIDE LEVEL 27.0 MMOL/L (20-31); CHLORIDE LEVEL 103.0 MMOL/L (98-107); CHOLESTEROL LEVEL 156.0 MG/DL (<200); CHOLESTEROL RISK RATIO 5.3 (<5); CREATININE FOR GFR 1.09 MG/DL (0.70-1.30); GLOMERULAR FILTRATION RATE 76.7 (>49); LDL CHOLESTEROL 89.8 MG/DL (<100); NON-HDL-C 126.6 MG/DL; POTASSIUM SERUM 4.4 MMOL/L (3.5-5.1); PSA SCREENING 0.66 NG/ML (< 4.00); SODIUM LEVEL 139.0 MMOL/L (136-145); TRIGLYCERIDES LEVEL 184.0 MG/DL (<150)
== END ==
LOC: M LAB 08:46
PROVIDERS: ATTEND Family Medicine
DX: F32.9 Major depressive disorder, single episode, unspecified (principal)